=== PATIENT | male | born 1960 | race Caucasian/White ===

== ENCOUNTER 2022-07-20 15:06 | Outpatient (CLI) | payer BC, SELFPAY ==
--- NOTE | ~2022-07-20 | US_ITS ---
EXAMINATION: US arterial ankle brachial ind DATE: 07/20/2022 16:05 INDICATION: Foot ulcer TECHNIQUE: Segmental pressures and plethysmographic and Doppler waveforms of the brachial and lower e xtremity arteries were obtained. COMPARISON: None. FINDINGS: Right and left brachial artery pressures of 124 mm Hg and 146 mm Hg, respectively, are concordant (no rmal difference <= 30 mmHg). The right ankle-brachial index (NENA) is 1.15 (normal >= 0.9-1.0). The right great toe-brachial index (TBI) is 0.30 (normal >= 0.65). Arterial Doppler waveforms are triphasic with brisk systolic upstroke s at both right posterior tibial and dorsalis pedis arteries. The left NENA is 1.09. The left TBI is 0.62. Arterial Doppler waveforms are biphasic at the left poste rior tibial artery and triphasic at the left dorsalis pedis artery, both with brisk systolic upstroke s. IMPRESSION: 1. Arterial occlusive disease to the bilateral lower limbs with normal bilateral ABIs but mildly decr eased left and moderately decreased right TBIs. Reviewed, dictated and finalized at location A. IMPRESSION: 1. Arterial occlusive disease to the bilateral lower limbs with normal bilatera l ABIs but mildly decreased left and moderately decreased right TBIs.
== END 2022-07-20 15:07 | disposition home or self-care (01) ==
PROVIDERS: PCP Registered Nurse; Visit Provider Registered Nurse
DX: L97.519 Non-pressure chronic ulcer of other part of right foot with unspecified severity (principal); I73.9 Peripheral vascular disease, unspecified
CPT/HCPCS: 93922

== ENCOUNTER → 2022-08-01 11:15 | Outpatient (CLI) | payer BC, SELFPAY ==
--- NOTE | ~2022-08-01 | XR_ITS ---
EXAM: XR foot RT min 3V DATE: 08/01/2022 11:38 HISTORY: Pain in right foot . COMPARISON: None available. FINDINGS: Normal mineralization. No fracture or dislocation. No lytic or blastic lesion. Mild degene rative change in the tibiotalar joint and multiple midfoot joints. Mild hallux valgus. Achilles and p lantar enthesopathy. No erosion or periosteal change. Plantar/medial soft tissue defect. Vascular lissa cifications. IMPRESSION: No radiographic evidence of osteomyelitis. Reviewed, dictated and finalized at location K.
== END ==
PROVIDERS: PCP Registered Nurse
DX: M79.671 Pain in right foot (principal)
CPT/HCPCS: 73630

== ENCOUNTER 2022-08-08 12:45 | Emergency (ER) | payer BC, SELFPAY ==
--- NOTE | ~2022-08-08 | US_ITS ---
EXAMINATION: US venous doppler LE RT DATE: 08/08/2022 14:27 INDICATION: swelling x 2-3 days . TECHNIQUE: Grayscale images without and with compression and Doppler images of the right lower extrem ity veins were obtained. COMPARISON: None FINDINGS: The right common femoral vein, profunda (deep) femoral vein, femoral vein, popliteal vein, peroneal v ein, posterior tibial veins, gastrocnemius vein, and greater saphenous vein are patent. Subcutaneous edema at the ankle. IMPRESSION: 1. Patent right lower extremity veins. No evidence of deep venous thrombosis. Reviewed, dictated and finalized at location K.
[2022-08-08 12:48] VITALS: BP 140/71; PULSE 84; RESP 18; TEMP 36.3; O2SAT 100
--- NOTE | 2022-08-08 14:07 | ED.EXTPRO ---
HPI - Extremity Problem General Chief complaint: Extremity Problem,Nontraumatic <Sammy Stevens PA-C - Last Filed: 08/08/22 15:05> Stated complaint: patient sent by PCP for DVT R/O <MADELINE Cid Last Filed: 08/08/22 15:05> Time Seen by Provider: 08/08/22 13:03 <MADELINE iCd Last Filed: 08/08/22 15:05> Source: patient <MADELINE Cid Last Filed: 08/08/22 15:05> Mode of arrival: ambulatory <MADELINE Cid Last Filed: 08/08/22 15:05> Limitations: no limitations <MADELINE Cid Last Filed: 08/08/22 15:05> History of Present Illness HPI Narrative: This is a 62-year-old male with PMH of diabetes who presents to the ED with chief complaint of right lower extremity swelling onset x6-7 days. Was seen by his PCP this morning and referred to the ED for an ultrasound to rule out a DVT. He has been undergoing work-up and treatment of right foot ulcers with podiatry. PCP called and states that they have little concern for deep infection of the foot and more concern for a blood clot at this point. Patient states that he has a little bit of pain and tenderness in the calf. Denies redness or warmth. Denies shortness of breath or chest pain. <Sammy Stevens PA-C - Last Filed: 08/08/22 15:05> Related Data Allergies/Adverse reactions: Allergies Allergy/AdvReac Type Severity Reaction Status Date / Time No Known Allergies Allergy Verified 08/08/22 13:08 <MADELINE Cid Last Filed: 08/08/22 15:05> Review of Systems Review of Systems: CONSTITUTIONAL: Denies fever, chills, or sweats. EYES: Denies visual changes, redness, or discharge. ENT: Denies rhinorrhea, congestion, sore throat, or otalgia. CARDIOVASCULAR: Denies chest pain, palpitations, or edema. RESPIRATORY: Denies cough or dyspnea. GASTROINTESTINAL: Denies abdominal pain, nausea, vomiting, or diarrhea. GENITOURINARY: Denies dysuria or hematuria. SKIN: Denies overlying skin changes. Denies rash or itching. MUSCULOSKELETAL: Endorses RLE swelling. Endorses right calf pain. Denies back pain, joint pain, or myalgia. NEUROLOGIC: Denies headache, numbness, dizziness, or weakness. PSYCHIATRIC: Denies anxiety or depression. <Sammy Stevens PA-C - Last Filed: 08/08/22 15:05> Exam Narrative: GENERAL: Well-appearing, well-nourished, and in no acute distress. HEAD: Normocephalic, atraumatic. EYES: PERRLA and EOMI. ENT: Nares clear, no rhinorrhea or epistaxis. Mucous membranes moist. Oropharynx without tonsillar hypertrophy exudate or other lesions. NECK: Supple. No adenopathy or masses. CHEST: No respiratory distress. Clear to auscultation. No wheezes rales or rhonchi HEART: Regular rate and rhythm. No murmur heard. Normal peripheral pulses. ABDOMEN: Soft, nontender, nondistended, normal active bowel sounds. EXTREMITIES: RLE: Minimal right calf tenderness present. 1+ pitting edema to the right ankle, does not extend higher. Normal range of motion. LLE: Benign with no edema. SKIN: Ulcer noted to the medial and lateral right foot. No purulent drainage. No redness or other overlying skin changes throughout the right lower extremity. Warm, dry, no rash. NEURO: Alert and oriented x3. No focal deficits. PSYCH: Normal mood and affect. <Sammy Stevens PA-C - Last Filed: 08/08/22 15:05> Course BUSINESS SERVICES REPRESENTATIVE/PA Physician Supervision For this patient encounter, I reviewed the BUSINESS SERVICES REPRESENTATIVE or PA documentation, treatment plan, and I was responsible for the medical decision making; and I had [id number] time with this patient. <Jeff Mg MD - Last Filed: 08/08/22 19:26> Vital Signs Vital signs: Vital Signs Temperature 97.4 F L 08/08/22 12:48 Pulse Rate 84 08/08/22 12:48 Respiratory Rate 18 08/08/22 12:48 Blood Pressure 140/71 08/08/22 12:48 Pulse Oximetry 100 08/08/22 12:48 Oxygen Delivery Room Air 08/08/22 12:48 Temperature 97.4 F L 08/08/22 12:48 Pulse Rate 83
[2022-08-08 14:26] LABS: Basophils Percent Auto 0.4 % (0.2-1.2); Eosinophils Absolute Auto 0.1 K/mm3 (0-0.3); Eosinophils Percent Auto 0.7 % (0-4.4); Hematocrit 35.8 % (42.0-52.0); Hemoglobin 11.8 g/dL (14.0-18.0); Immature Granulocyte Percent A 1.2 % (0-0.5); Lymphocytes Absolute Auto 1.08 K/mm3 (0.9-3.2); Lymphocytes Percent Auto 13.3 % (18.3-44.2); Mean Corpuscular Hemoglobin 29.9 pg (26-34); Mean Corpuscular Volume 90.9 fl (80-100); Monocytes Absolute Auto 0.9 K/mm3 (0.1-0.6); Monocytes Percent Auto 10.8 % (2.6-8.5); Neutrophils Percent Auto 73.6 % (45.5-73.1); Platelet Count Result 340 k/mm3 (150-375); Red Blood Count 3.94 M/mm3 (4.6-6.20); Red Cell Distribution Width 12.9 % (11.5-14.5); White Blood Count 8.1 K/mm3 (4.5-10.0)
[2022-08-08 14:32] LABS: Prothrombin Time 13.1 Seconds (11.1-14.7)
[2022-08-08 14:36] LABS: Anion Gap 10 mmol/L (8-16); Blood Urea Nitrogen 25 mg/dL (9-20); Calcium 9.4 mg/dL (8.4-10.2); Carbon Dioxide 25 mmol/L (22-30); Chloride 100 mmol/L (98-107); Estimated CRCL calculation 82 ml/min; Estimated Glomerular Filt Rate > 60; Glucose 66 mg/dL (65-110); Potassium 4.7 mmol/L (3.4-5.0); Sodium 135 mmol/L (137-145)
[2022-08-08 15:04] VITALS: BP 144/67; PULSE 83; RESP 18; O2SAT 100
== END 2022-08-08 15:06 | disposition home or self-care (01) ==
PROVIDERS: Emergency Provider Physician Assistant; PCP Registered Nurse
DX: R60.0 Localized edema (principal); E11.621 Type 2 diabetes mellitus with foot ulcer; L97.519 Non-pressure chronic ulcer of other part of right foot with unspecified severity
CPT/HCPCS: 36415; 80048; 85025; 85610; 93971; 99284

== ENCOUNTER 2024-09-18 14:17 | Outpatient (CLI) | payer BC, SELFPAY ==
--- NOTE | ~2024-09-18 | US_ITS ---
EXAM: RENAL ULTRASOUND HISTORY: Elevated serum levels COMPARISON: None FINDINGS: RIGHT KIDNEY: 12.0 x 7.7 x 5.0cm. The parenchyma of the right kidney is unremarkable in echogenicity. Cortical thinning is noted. No hydronephrosis or renal calculi. LEFT KIDNEY: 11.7 x 6.2 x 6.0cm No hydronephrosis or renal calculi. The parenchyma of the left kidney is unremarkable in echogenicity. Cortical thinning is noted. BLADDER: The bladder is distended, and otherwise unremarkable. IMPRESSION: No hydronephrosis or renal calculi. Findings suggesting medical renal disease. Reviewed, dictated and finalized at location A.
== END 2024-09-18 14:18 | disposition home or self-care (01) ==
PROVIDERS: PCP Family Medicine; Visit Provider Registered Nurse
DX: R79.89 Other specified abnormal findings of blood chemistry (principal)
CPT/HCPCS: 76770

== ENCOUNTER 2024-11-01 13:41 | Outpatient (CLI) | payer BC, SELFPAY ==
--- NOTE | ~2024-11-01 | US_ITS ---
Ankle Brachial Index with Ultrasound Dopplers and Pulse Volume Recordings Technique: Pressures in the arm and lower extremity were obtained. Additionally, arterial and pulse v olume waveforms were obtained bilaterally. Findings: Segmental pressures Right posterior tibial: 149 Right dorsalis pedis: 134 Left posterior tibial: 122 Left dorsalis pedis: 140 There are primarily monophasic waveforms bilaterally. NENA Right 1.24 Left 1.17 TBI Right unable to obtain Left 0.29 Impression: Severe peripheral vascular disease is suspected, based on the TBI of the left foot, as de tailed above. Reviewed, dictated and finalized at location A. Impression: Severe peripheral vascular disease is suspected, based on the TBI o f the left foot, as detailed above.
== END 2024-11-01 13:42 | disposition home or self-care (01) ==
PROVIDERS: PCP Family Medicine
DX: I73.9 Peripheral vascular disease, unspecified (principal)
CPT/HCPCS: 93922